=== PATIENT | female | born 1945 | race Caucasian/White ===

== ENCOUNTER → 2018-02-20 12:18 | Outpatient (REF) | payer MEDICARE, SELFPAY ==
[2018-02-20 14:16] LABS: TSH 0.53 uIU/mL (0.358-3.74)
== END ==
LOC: NCHCN 12:18
PROVIDERS: PCP Internal Medicine; Visit Provider Internal Medicine
DX: E03.9 Hypothyroidism, unspecified (principal)
CPT/HCPCS: 84443

== ENCOUNTER 2019-02-21 09:43 | Outpatient (REF) | payer MEDICARE, SELFPAY ==
[2019-02-21 13:34] LABS: TSH 0.53 uIU/mL (0.36-3.74)
== END 2019-02-21 10:03 ==
LOC: NCHCN 09:43
PROVIDERS: PCP Internal Medicine; Visit Provider Internal Medicine
DX: E03.9 Hypothyroidism, unspecified (principal)
CPT/HCPCS: 84443

== ENCOUNTER 2020-02-29 09:41 | Outpatient (REF) | payer MEDICARE, SELFPAY ==
[2020-02-29 22:06] LABS: TSH 0.53 uIU/mL (0.36-3.74)
== END 2020-02-29 10:01 ==
LOC: NCHCN 09:41
PROVIDERS: PCP Internal Medicine; Visit Provider Internal Medicine
DX: E03.9 Hypothyroidism, unspecified (principal)
CPT/HCPCS: 84443

== ENCOUNTER 2021-02-27 12:22 | Outpatient (REF) | payer MEDICARE, SELFPAY ==
[2021-02-27 15:12] LABS: TSH 0.63 uIU/mL (0.36-3.74)
== END 2021-02-27 12:23 | disposition home or self-care (01) ==
LOC: NCHCN 12:22
PROVIDERS: PCP Internal Medicine; Visit Provider Family Medicine
DX: E03.9 Hypothyroidism, unspecified (principal)
CPT/HCPCS: 84443

== ENCOUNTER 2021-08-12 13:16 | Outpatient (CLI) | payer MEDICARE, SELFPAY ==
--- NOTE | 2021-08-12 11:55 | DI.RAD_ITS ---
Exam(s) XR HAND RT COMPLETE EXAM: XR HAND RT COMPLETE CLINICAL HISTORY: RT HAND SWELLING R22.31, PAIN SWELLING OVER MCP DIGIT 2 AND 3. TECHNIQUE: 2D digital imaging was performed of the right hand. Three images were obtained. AP, late ral and oblique views were obtained. COMPARISON: No exams were available for comparison FINDINGS: BONES: No acute fracture is present. No bony destructive lesion is seen. JOINTS: No dislocation present. Minimal degenerative changes are seen in the hand particularly at the 1st CMC joint. SOFT TISSUE: There is soft tissue swelling of the 2nd finger. No radiopaque foreign bodies are prese nt. IMPRESSION: Soft tissue swelling of the 2nd finger. No acute fracture or dislocation. DATA REPOSITORY: RADIATION DOSE DELIVERED:
== END 2021-08-12 13:36 ==
PROVIDERS: PCP Internal Medicine; Visit Provider Physician Assistant Medical
DX: R22.31 Localized swelling, mass and lump, right upper limb (principal)
CPT/HCPCS: 73130

== ENCOUNTER 2022-03-05 20:26 | Outpatient (REF) | payer MEDICARE, SELFPAY ==
[2022-03-05 15:24] LABS: Anion Gap 4.9 mmol/L (3-11); BUN 21 mg/dL (7-18); CO2 32.1 mmol/L (21.0-32.0); CREATININE 0.8 mg/dL (0.55-1.02); Calcium 10.1 mg/dL (8.5-10.1); Chloride 100 mmol/L (98-107); Estimated GFR 76.31 (mL/min/1.73m2); Glucose 83 mg/dL (74-106); Potassium 4.5 mmol/L (3.5-5.1); Sodium 137 mmol/L (136-145); TSH 0.82 uIU/mL (0.36-3.74)
== END 2022-03-05 20:27 | disposition home or self-care (01) ==
LOC: NCHCN 20:26
PROVIDERS: PCP Internal Medicine; Visit Provider Family Medicine
DX: E03.9 Hypothyroidism, unspecified (principal); E78.00 Pure hypercholesterolemia, unspecified
CPT/HCPCS: 80048; 84443

== ENCOUNTER 2022-03-12 12:31 | Outpatient (REF) | payer MEDICARE, SELFPAY ==
[2022-03-12 19:55] LABS: Abs Immature Grans 0.01 10^3/uL (0.0-0.06); Absolute Basophil Count 0.03 10^3/uL (0.0-0.2); Absolute Eosinophil Count 0.07 10^3/uL (0.0-0.7); Absolute Lymphocyte Count 1.51 10^3/uL (1.2-3.4); Absolute Monocyte Count 0.51 10^3/uL (0.1-0.8); Absolute Neutrophil Count 3.67 10^3/uL (1.2-6.7); Basophils % 0.5; Eosinophils % 1.2; HCT 45.2 % (36.0-46.0); HGB 14.8 g/dL (11.2-15.7); Immature Grans % 0.2; MCH 28.2 pg (27.0-33.0); MCHC 32.7 % (32.0-36.0); MCV 86 fL (80-95); MPV 9.1 fL (8.0-11.0); Monocytes % 8.8; Neutrophils % 63.3; Platelet Count 380 10^3/uL (130-400); RBC 5.24 10^6/uL (3.93-5.22); RDW 13.9 % (11.7-14.6); RDW-SD 43.9 fL
[2022-03-12 20:05] LABS: ESR 22 mm/hr (0-30)
[2022-03-12 20:40] LABS: Calculated LDL 128 mg/dL (<100); Cholesterol 223 mg/dL (<200); HDL Cholesterol 77 mg/dL (40-60); Triglyceride 90 mg/dL (<150)
[2022-03-15 09:47] LABS: ALT 23 U/L (14-59); AST 21 U/L (15-37); Alkaline Phosphatase 104 U/L (46-116)
== END 2022-03-12 12:32 | disposition home or self-care (01) ==
LOC: NCHCN 12:31
PROVIDERS: PCP Internal Medicine; Visit Provider Family Medicine
DX: E03.9 Hypothyroidism, unspecified (principal); R63.4 Abnormal weight loss
CPT/HCPCS: 80061; 85652; 84075; 84450; 84460; 85025

== ENCOUNTER 2022-11-18 15:36 | Outpatient (REF) | payer MEDICARE, SELFPAY ==
[2022-11-18 20:07] LABS: Abs Immature Grans 0.02 10^3/uL (0.0-0.06); Absolute Basophil Count 0.05 10^3/uL (0.0-0.2); Absolute Eosinophil Count 0.14 10^3/uL (0.0-0.7); Absolute Monocyte Count 0.62 10^3/uL (0.1-0.8); Basophils % 0.7; HCT 48.4 % (36.0-46.0); HGB 15.3 g/dL (11.2-15.7); Immature Grans % 0.3; Lymphocytes % 24.9; MCH 28.5 pg (27.0-33.0); MCHC 31.6 % (32.0-36.0); MCV 90 fL (80-95); Monocytes % 9.1; RBC 5.36 10^6/uL (3.93-5.22); RDW-SD 42.2 fL; WBC 6.83 10^3/uL (4.4-10.8)
[2022-11-18 20:28] LABS: ALT 22 U/L (14-59); AST 20 U/L (15-37); Albumin 4.2 g/dL (3.4-5.0); Alkaline Phosphatase 115 U/L (46-116); Anion Gap 7.7 mmol/L (3-11); BUN 20 mg/dL (7-18); Bilirubin, Total 0.3 mg/dL (0.2-1.0); CO2 30.3 mmol/L (21.0-32.0); CREATININE 0.8 mg/dL (0.55-1.02); Calcium 10.3 mg/dL (8.5-10.1); Chloride 103 mmol/L (98-107); Estimated GFR 75.84 (mL/min/1.73m2); Glucose 76 mg/dL (74-106); Potassium 4.6 mmol/L (3.5-5.1); Sodium 141 mmol/L (136-145); TSH (W/Ref FT4) 0.62 uIU/mL (0.36-3.74)
[2022-11-18 21:07] LABS: Folate > 20.0 ng/mL (8.6-20.0); Vitamin B12 365 pg/mL (193-986)
== END 2022-11-18 15:37 | disposition home or self-care (01) ==
LOC: NCHCN 15:36
PROVIDERS: PCP Internal Medicine; Visit Provider Family Medicine
DX: E03.9 Hypothyroidism, unspecified (principal); M81.0 Age-related osteoporosis without current pathological fracture; Z79.899 Other long term (current) drug therapy
CPT/HCPCS: 80053; 82607; 82746; 84443; 85025